=== PATIENT | male | born 2000 | race Caucasian/White ===

== ENCOUNTER 2021-04-12 12:27 | Outpatient (REF) | payer OTHER, SELFPAY ==
[2021-04-13 17:57] LABS: Varicella IgG Antibody <135.00 index
== END 2021-04-12 12:28 | disposition home or self-care (01) ==
LOC: HO.HMGCLDS 12:27
PROVIDERS: PCP Internal Medicine; Visit Provider Internal Medicine
DX: Z28.3 Underimmunization status (principal)
CPT/HCPCS: 36415; 86787

== ENCOUNTER 2022-10-04 10:36 | Outpatient (REF) | payer OTHER, SELFPAY ==
[2022-10-04 14:01] LABS: MANUAL DIFF FLAG NO
[2022-10-04 14:08] LABS: Basophils Percent Auto 0.5 % (0-2); Eosinophils Absolute Auto 0.2 X10*3/uL (0.0-0.4); Hemoglobin 14.9 g/dl (14.0-18.0); Lymphocytes Absolute Auto 2.2 X10*3/uL (1.2-4.9); Lymphocytes Percent Auto 55.6 % (20-40); Mean Corpuscular HGB Conc 31.7 g/dl (31.0-36.0); Mean Corpuscular Volume 91.4 fL (80.0-98.0); Mean Platelet Volume 10.8 fL (9.4-12.4); Monocytes Absolute Auto 0.3 X10*3/uL (0.1-1.2); Neutrophils Absolute Auto 1.3 x10*3/uL (2.0-8.3); Neutrophils Percent Auto 32.9 % (45-73); Platelet Count 180 X10*3/uL (160-400); Red Blood Count 5.14 X10*6/uL (4.60-5.80); Red Cell Distribution Width 12.5 % (11.0-16.0)
[2022-10-04 14:39] LABS: Alanine Aminotransferase 22 U/L (0-40); Albumin Level 4.5 g/dL (3.5-5.0); Alkaline Phosphatase 76 U/L (39-117); Anion Gap 10 (12-20); Aspartate Amino Transferase 17 U/L (5-37); Bilirubin Total 0.4 mg/dL (0.0-1.0); Blood Urea Nitrogen 17 mg/dL (9-16); Calcium 9.7 mg/dL (8.4-10.2); Carbon Dioxide 27 mmol/L (22-29); Chloride 109 mmol/L (96-108); Cholesterol 192 mg/dL; Estimated Glomerular Filt Rate > 60; Glucose Fasting 83 mg/dL (60-99); HDL Cholesterol 41 mg/dL; LDL Cholesterol Calculated 130 mg/dl; Potassium 4.1 mmol/L (3.3-5.1); Sodium 142 mmol/L (135-145); Triglycerides 106 mg/dL
[2022-10-04 15:01] LABS: TSH reflex Free T4 1.61 uIU/mL (0.32-4.0); Vitamin B12 552 pg/mL (200-900)
[2022-10-09 14:08] LABS: Testosterone, Total 638 ng/dL (250-1100)
[2022-10-10 16:22] LABS: Vitamin D 25-OH, D2 <4 ng/mL; Vitamin D 25-OH, D3 15 ng/mL; Vitamin D 25-OH, Total 15 ng/mL (30-100)
== END 2022-10-04 10:37 | disposition home or self-care (01) ==
LOC: HO.HMGCLDS 10:36
PROVIDERS: PCP Internal Medicine; Visit Provider Internal Medicine
DX: Z00.01 Encounter for general adult medical examination with abnormal findings (principal); D17.9 Benign lipomatous neoplasm, unspecified; D36.9 Benign neoplasm, unspecified site; L65.9 Nonscarring hair loss, unspecified
CPT/HCPCS: 36415; 80053; 80061; 82306; 82607; 84403; 84443; 85025

== ENCOUNTER 2022-10-08 10:38 | Outpatient (REF) | payer OTHER, SELFPAY ==
--- NOTE | ~2022-10-08 | US_ITS ---
EXAMINATION: US RETROPERITONEAL LIMITED (RENAL) CLINICAL INFORMATION: Unspecified abdominal pain. Right flank pain. COMPARISON: None TECHNIQUE: Real-time imaging of right kidney. The left kidney was not examined. FINDINGS: RIGHT KIDNEY: 11.0 x 4.3 x 6.0 cm (SAG x AP x TRV). The kidney is normal in size, contour, and echogenicity. Renal cortical thickness is normal. No calculi or focal parenchymal lesions. No hydronephrosis. US/US renal RT IMPRESSION: Normal-appearing right kidney.
== END 2022-10-08 10:39 | disposition home or self-care (01) ==
LOC: HO.HMGCX 10:38
PROVIDERS: PCP Internal Medicine; Visit Provider Internal Medicine
DX: R10.9 Unspecified abdominal pain (principal)
CPT/HCPCS: 76775

== ENCOUNTER 2023-09-13 11:00 | Outpatient (AMB) | payer OTHER, SELFPAY ==
--- NOTE | 2023-09-13 11:02 | A.OFFPC_ITS ---
Vital Signs 09/13/23 11:05 Height 5 ft 6 in Weight 184 lb BMI 29.7 BP 120/74 Pulse 72 Pulse Source Pulse Oximeter Pulse Oximetry (%) 97 Oxygen Delivery Method Room Air Intake Visit Reasons: Annual PE Allergies No Known Allergies Allergy (Verified 09/13/23 11:05) Medication List - Last Reconciled 09/13/23 by Karen Grullon MD No Known Home Meds Tobacco use date assessed: 09/13/23 Dental Screening Dental Screen Date: 09/13/23 Did you have a dental visit in the last 12 months?: Yes Did you have a dental problem in the last 6 months where you did not have access to dental care?: No Was dental information given to patient?: Patient has dentist HPI Annual PE HPI Details Patient is 23-year-old gentleman with a history of depression currently taking no medication and feeling fine, last time he had lab his white count was slightly low We will be repeating that, history of vitamin-D deficiency should be taking supplement came in today for physical examination Patient says that couple of months ago he was seen in walk-in clinic as he was having some dysuria and was diagnosed with mild UTI he was given antibiotic and he felt fine Last night when he went to urinate he had difficulty emptying his bladder, patient says that that is how it started last time He has no fever chills on examination there is no suprapubic discomfort days no penile discharge No back pain I have ordered urinalysis along with blood test I have sent Flomax for couple of weeks We will follow-up in 2 weeks [facility] Surgical History No pertinent past surgical history Family History Father No problems noted. Mother No problems noted. Brother No problems noted. Sister No problems noted. Sister No problems noted. Social History Housing: House Patient Tobacco Use Status: Current everyday Tobacco user e-Cigarette/Vaping Use: Never Used service: No Current occupational status: unemployed Cognitive needs: No Hearing needs: No Vision needs: Yes Questionnaire PHQ-9 Over the last 2 weeks, how often have you been bothered by any of the following problems? 1. Little interest or pleasure in doing things: not at all 2. Feeling down, depressed, or hopeless: not at all 3. Trouble falling or staying asleep, or sleeping too much: not at all 4. Feeling tired or having little energy: not at all 5. Poor appetite or overeating: not at all 6. Feeling bad about yourself - or that you are a failure or have let yourself or your family down: not at all 7. Trouble concentrating on things, such as reading the newspaper or watching television: not at all 8. Moving or speaking so slowly that other people could have noticed. Or the opposite - being so fidgety or restless that you have been moving around a lot more than usual: not at all 9. Thoughts that you would be better off or of hurting yourself in some way: not at all Total score: 0 Depression Screening Interpretation: Negative Depression Screening Done: Yes 65388 - PHQ-9 Billing: Yes Source: Developed by Drs. Carlo Romero, Rose Reese, Jose Sharma and colleagues, with an educational patsy from [employer]. Thrive Questionnaire Date Thrive assessed: 09/13/23 I am a: Patient What is your living situation today?: I have a steady place to live Within the past 12 months, did the food you bought not last and you didn't have the money to get more?: Never true Within the past 12 months, did you worry whether your food would run out before you got money to buy more?: Never true Do you have trouble paying for medicines?: No Do you have trouble getting transportation to medical appointments?: No Do you have trouble paying your heating and electricity bill?: No Do you have trouble taking care of your child, family member or friend?: No Do you have trouble with day-to-day activities such as bathing, preparing meals, shopping, managing finances, etc.?: No Are you currently unemployed and looking for a job?: No Are you interested in more education?: No Please select the resources that you would like help with: None Currently or been in a relationship where the following occur: no concerns reported AUDIT C Alcohol Use Questionnaire (AUDIT-C) 1. How often do you have a drink containing alcohol?: Never 3. How often do you have six or more drinks on one occasion?: Never Total Score: 0 Score Reviewed/Action Taken: Yes MOI-7 AMB Questionnaire MOI-7 Date MOI - 7 assessed: 09/13/23 Feeling nervous, anxious, or on edge: 0 = Not at all Not being able to stop or control worryin = Not at all Worrying too much about different things: 0 = Not at all Trouble relaxin = Not at all Being so restless that it is hard to sit still: 0 = Not at all Becoming easily annoyed or irritable: 0 = Not at all Feeling afraid as if something awful might happen: 0 = Not at all Total MOI-7 score (0-4 normal; 5-9 mild; 10-14 moderate; 15-21 severe): 0 Source: Developed by Drs. Carlo Romero, Rose Reese, Jose Sharma and colleagues, with an educational patsy from [employer]. MOI-7 Assessment Billing MOI-7 Assessment Tool: MOI-7 Assessment 27136 Review of Systems Const Denies chills, Denies fever(s) and Denies headache(s) Eyes Denies blurry vision ENT Denies headache(s), Denies nasal discharge, Denies nasal obstruction, Denies odynophagia and Denies sinus pain Card Denies chest pain at rest and Denies chest pain with activity Resp Denies cough and Denies hemoptysis GI Denies diarrhea, Denies odynophagia, Denies vomiting and Denies hematemesis Reports as per HPI Musc Denies abnormal gait Skin/Breast Reports as per HPI Neuro Denies Neuro-related abnormal movements, Denies Abnormal speech present, Denies abnormal gait, Denies headache(s) and Denies Sensory deficit (Neuro) Psych Denies mood swings and Denies paranoia Endo Reports as per HPI Cody/Lymph Reports as per HPI Aller/Immun Reports as per HPI Physical exam (Primary Care) Vital Signs: Last Vital Signs Pulse 72 09/13/23 11:05 BP 120/74 09/13/23 11:05 Pulse Ox 97 09/13/23 11:05 Oxygen Delivery Method Room Air 09/13/23 11:05 BMI result Body Mass Index 29.7 Tobacco/Smoking Status: Tobacco use Status Tobacco use date assessed 09/13/23 09/13/23 11:07 Patient Tobacco Use Status Current everyday Tobacco 09/13/23 11:07 e-Cigarette/Vaping Use Never Used 09/13/23 11:03 PHQ-9: PHQ-9 Score PHQ-9: Total score 0 09/13/23 11:23 Depression Screening Interpretation: Negative Thrive Assessment: Date of Thrive Assessment Date Thrive assessed 09/13/23 09/13/23 11:23 Currently or been in a relationship where the following occur: no concerns reported Const General: cooperative, comfortable and no acute distress Orientation/consciousness: patient oriented x3 HENMT Head: Yes normocephalic and Yes atraumatic Eyes General: appearance normal, both eyes and all related structures Pupils: Equal, round and reactive pupils present EOM: EOMs intact bilaterally Neck Neck: Yes supple and No lymphadenopathy Thyroid: Thyroid normal Lymphatic: no lymphadenopathy noted Resp Effort & Inspection: normal respiratory effort and able to speak in complete sentences Auscultation: clear to auscultation bilaterally Cardio Heart sounds: S1 normal heart sound present and S2 normal heart sound present GI Palpation (GI): Soft to palpation and nontender Auscultation: normal bowel sounds General: Yes no CVA tenderness Back/Spine/Pelvis Back: no CVA tenderness Skin General skin exam: elasticity normal and turgor normal Neuro General: patient oriented x3 and gait normal Cranial nerves: Yes Equal, round and reactive pupils present Speech: No Abnormal speech present Sensory Exam: No Sensory deficit (Neuro) Coordination: tandem gait normal and Romberg test negative Extrem General: Yes normal exam except as noted and No edema Office Procedures Flu Questionnaire Does the patient have a severe egg allergy?: No Does the patient have severe life threatening allergies?: No Does the patient have a fever or illness today?: No Has the patient ever had Guillain-[place] Syndrome?: No Has the patient ever had any past reaction to a flu shot?: No Immunizations flu vacc [id number] 6mos up(PF) 60 mcg(15 mcgx4)/0.5 mL IM syringe Performing Provider: Karen Grullon MD Performing Location: [facility] Administered by: DK Howard on 09/13/23 11:23 Dose Route Admin Location Dispensed Lot Number Expiration Date NDC Window Framer 0.5 mL IM Left Deltoid 0.5 mL [id number] 03/01/24 [id number] [employer] VIS Given Date VIS Provided VIS Publication Date 09/13/23 Single Vaccine 21 Eligibility Eligibility Date Funding Source Not [facility] Eligible 09/13/23 Private Assessment and Plan Assessment & Plan (1) Encounter for general adult medical examination with abnormal findings: Code(s): Z00.01 - Encounter for general adult medical examination with abnormal findings (2) Neutropenia: Code(s): D70.9 - Neutropenia, unspecified Qualifiers: Neutropenia type: unspecified Qualified Code(s): D70.9 - Neutropenia, unspecified (3) Vitamin D deficiency: Code(s): E55.9 - Vitamin D deficiency, unspecified (4) Difficulty urinating: Code(s): R39.198 - Other difficulties with micturition Plan Patient is 23-year-old gentleman with a history of depression currently taking no medication and feeling fine, last time he had lab his white count was slightly low We will be repeating that, history of vitamin-D deficiency should be taking supplement came in today for physical examination Patient says that couple of months ago he was seen in walk-in clinic as he was having some dysuria and was diagnosed with mild UTI he was given antibiotic and he felt fine Last night when he went to urinate he had difficulty emptying his bladder, patient says that that is how it started last time He has no fever chills on examination there is no suprapubic discomfort days no penile discharge No back pain I have ordered urinalysis along with blood test I have sent Flomax for couple of weeks We will follow-up in 2 weeks Orders: Orders Complete Blood Count Auto Diff Today E55.9 - Vitamin D deficiency, unspecified, E87.1 - Hypo-osmolality and hyponatremia, F33.0 - Major depressive disorder, recurrent, mild, Z00.01 - Encounter for general adult medical examination with abnormal findings Comprehensive [place]. Panel Fast Today E55.9 - Vitamin D deficiency, unspecified, E87.1 - Hypo-osmolality and hyponatremia, F33.0 - Major depressive disorder, recurrent, mild, Z00.01 - Encounter for general adult medical examination with abnormal findings Lipid Panel Today E55.9 - Vitamin D deficiency, unspecified, E87.1 - Hypo- osmolality and hyponatremia, F33.0 - Major depressive disorder, recurrent, mild, Z00.01 - Encounter for general adult medical examination with abnormal findings UA CC w/rflx Micro + Cult Today R39.198 - Other difficulties with micturition Vitamin D 25-OH (D2 and D3) Today E55.9 - Vitamin D deficiency, unspecified, E87.1 - Hypo-osmolality and hyponatremia, F33.0 - Major depressive disorder, recurrent, mild, Z00.01 - Encounter for general adult medical examination with abnormal findings Influenza [id number] Immunization Today Z23 - Encounter for immunization Medications: New tamsulosin (Flomax) 0.4 mg PO BEDTIME 30 caps 0RF Coding Level of Care Code Est Pt Prev Care 18-39y(10841) Diagnoses Encounter for general adult medical examination with abnormal findings Z00.01 Neutropenia, unspecified type D70.9 Neutropenia type: unspecified Vitamin D deficiency E55.9 Difficulty urinating R39.198 Additional Codes MOI-7 Assessment Billing - MOI-7 Assessment Tool: MOI-7 Assessment 45626 ([id number])
[2023-09-13 11:05] VITALS: BP 120/74; PULSE 72; O2SAT 97; BMI 29.7
== END 2023-09-13 12:47 | disposition home or self-care (01) ==
PROVIDERS: Visit Provider Internal Medicine
DX: Z00.00 Encounter for general adult medical examination without abnormal findings (principal); D70.9 Neutropenia, unspecified; E55.9 Vitamin D deficiency, unspecified; Z23 Encounter for immunization; R39.198 Other difficulties with micturition
CPT/HCPCS: 90471; 90686; 99395

== ENCOUNTER 2023-09-18 14:08 | Outpatient (REF) | payer OTHER, SELFPAY ==
[2023-09-18 16:28] LABS: Appearance Urine Clear; Color Urine Yellow; Glucose Urine UA Negative (Negative); Leukocyte Esterase Urine Negative (Negative); Nitrite Urine Negative (Negative); Specific Gravity - Urine 1.025 (1.005-1.025); Urine Blood Negative (Negative); Urine Ketones Negative (Negative); Urine Protein Negative (Neg-Trace)
[2023-09-18 16:37] LABS: MANUAL DIFF FLAG NO
[2023-09-18 16:44] LABS: Basophils Percent Auto 0.5 % (0-2); Eosinophils Absolute Auto 0.1 X10*3/uL (0.0-0.4); Eosinophils Percent Auto 2.9 % (0-4); Hematocrit 43.3 % (42.0-52.0); Hemoglobin 14.1 g/dl (14.0-18.0); Imm Gran Abs Auto 0.01 X10*3/uL (0.00-0.03); Imm Gran Pct Auto 0.3 % (0.0-0.4); Lymphocytes Absolute Auto 1.6 X10*3/uL (1.2-4.9); Mean Corpuscular HGB Conc 32.6 g/dl (31.0-36.0); Mean Corpuscular Hemoglobin 29.7 pg (27.0-33.0); Mean Corpuscular Volume 91.2 fL (80.0-98.0); Mean Platelet Volume 10.8 fL (9.4-12.4); Monocytes Absolute Auto 0.3 X10*3/uL (0.1-1.2); Neutrophils Absolute Auto 1.7 x10*3/uL (2.0-8.3); Neutrophils Percent Auto 44.3 % (45-73); Platelet Count 179 X10*3/uL (160-400); Red Blood Count 4.75 X10*6/uL (4.60-5.80); Red Cell Distribution Width 12.6 % (11.0-16.0); White Blood Count 3.8 X10*3/uL (4.8-10.8)
[2023-09-18 16:54] LABS: Alanine Aminotransferase 26 U/L (0-40); Albumin Level 4.4 g/dL (3.5-5.0); Alkaline Phosphatase 67 U/L (39-117); Anion Gap 12 (12-20); Aspartate Amino Transferase 18 U/L (5-37); Bilirubin Total 0.4 mg/dL (0.0-1.0); Blood Urea Nitrogen 13 mg/dL (9-16); Calcium 9.5 mg/dL (8.4-10.2); Carbon Dioxide 27 mmol/L (22-29); Chloride 107 mmol/L (96-108); Cholesterol 189 mg/dL (<200); Estimated Glomerular Filt Rate > 60; Glucose Fasting 91 mg/dL (60-99); HDL Cholesterol 50 mg/dL (>40); LDL Cholesterol Calculated 128 mg/dL (<100); Potassium 4.1 mmol/L (3.3-5.1); Sodium 142 mmol/L (135-145); Total Protein 7.3 g/dL (6.5-8.0); Triglycerides 59 mg/dL (<150)
[2023-09-22 13:23] LABS: Vitamin D 25-OH, D2 <4 ng/mL; Vitamin D 25-OH, D3 11 ng/mL; Vitamin D 25-OH, Total 11 ng/mL (30-100)
== END 2023-09-18 14:09 | disposition home or self-care (01) ==
LOC: HO.HMGCLDS 14:08
PROVIDERS: PCP Internal Medicine; Visit Provider Internal Medicine
DX: Z00.01 Encounter for general adult medical examination with abnormal findings (principal); E87.1 Hypo-osmolality and hyponatremia; F33.0 Major depressive disorder, recurrent, mild; E55.9 Vitamin D deficiency, unspecified; R39.198 Other difficulties with micturition
CPT/HCPCS: 36415; 80053; 80061; 81003; 82306; 85025

== ENCOUNTER 2023-09-26 07:40 | Outpatient (AMB) | payer OTHER, SELFPAY ==
--- NOTE | 2023-09-26 08:42 | MHC.PC.OV ---
Vital Signs 09/26/23 08:42 Height 5 ft 6 in Intake Visit Reasons: Urinary Symptoms [phone] Iphone Allergies No Known Allergies Allergy (Verified 09/26/23 08:43) Medication List - Last Reconciled 09/26/23 by Karen Grullon MD tamsulosin (Flomax) 0.4 mg PO BEDTIME Tobacco use date assessed: 09/26/23 Dental Screening Dental Screen Date: 09/26/23 Did you have a dental visit in the last 12 months?: Yes Did you have a dental problem in the last 6 months where you did not have access to dental care?: No Was dental information given to patient?: Patient has dentist HPI Urinary Symptoms [phone] Iphone HPI Details Patient is 23-year-old gentlemen this is a telemedicine video conference follow-up Patient was complaining of having difficulty emptying his bladder, I started him on Flomax he took couple of doses of felt better and then stopped He is doing well now without any problem and is not taking medication as well However he is having that recurrent Grace so I have placed a referral for him to see a urologist. Patient is also complaining of upper back pain and is requesting a referral to chiropractor which I have placed for him. Labs done reviewed with the patient vitamin-D level is still low he is taking supplement His UA was clean. [facility] Surgical History No pertinent past surgical history Family History Father No problems noted. Mother No problems noted. Brother No problems noted. Sister No problems noted. Sister No problems noted. Social History Housing: House Patient Tobacco Use Status: Current everyday Tobacco user e-Cigarette/Vaping Use: Never Used service: No Current occupational status: unemployed Cognitive needs: No Hearing needs: No Vision needs: Yes Questionnaire Thrive Questionnaire Date Thrive assessed: 09/13/23 AUDIT C Alcohol Use Questionnaire (AUDIT-C) 1. How often do you have a drink containing alcohol?: Never 3. How often do you have six or more drinks on one occasion?: Never Total Score: 0 Score Reviewed/Action Taken: Yes MOI-7 AMB Questionnaire MOI-7 Date MOI - 7 assessed: 09/13/23 Source: Developed by Drs. Carlo Romero, Rose Reese, Jose Sharma and colleagues, with an educational patsy from [employer]. Review of Systems Const Denies chills and Denies fever(s) ENT Denies epistaxis and Denies nasal discharge Card Denies chest pain Resp Denies chest congestion, Denies cough and Denies hemoptysis GI Denies diarrhea and Denies nausea Skin/Breast Denies rash Neuro Reports no additional complaints Psych Reports no additional complaints Endo Reports no additional complaints Physical exam (Primary Care) Tobacco/Smoking Status: Tobacco use Status Tobacco use date assessed 09/26/23 09/26/23 08:43 Patient Tobacco Use Status Current everyday Tobacco 09/26/23 08:43 e-Cigarette/Vaping Use Never Used 09/26/23 08:43 Thrive Assessment: Date of Thrive Assessment Date Thrive assessed 09/13/23 09/26/23 08:43 Telehealth Telehealth Location of provider rendering services: practice address Location of patient: address on file Patient Identification confirmed using: Name, : Yes Telehealth method: video Patient verbally consented to treatment: Yes Patient verbally consented to billing insurance company: Yes Patient informed of any privacy concerns related to visit: Yes Assessment and Plan Assessment & Plan (1) Difficulty urinating: Code(s): R39.198 - Other difficulties with micturition (2) Upper back pain: Code(s): M54.9 - Dorsalgia, unspecified (3) Vitamin D deficiency: Code(s): E55.9 - Vitamin D deficiency, unspecified (4) Neutropenia: Code(s): D70.9 - Neutropenia, unspecified Qualifiers: Neutropenia type: unspecified Qualified Code(s): D70.9 - Neutropenia, unspecified Plan Patient is 23-year-old gentlemen this is a telemedicine video conference follow-up Patient was complaining of having difficulty emptying his bladder, I started him on Flomax he took couple of doses of felt better and then stopped He is doing well now without any problem and is not taking medication as well However he is having that recurrent Grace so I have placed a referral for him to see a urologist. Patient is also complaining of upper back pain and is requesting a referral to chiropractor which I have placed for him. Labs done reviewed with the patient vitamin-D level is still low he is taking supplement His UA was clean. Continue to have slightly low white count Orders: Referrals Chiropractic Referral M54.9 - Dorsalgia, unspecified Vascular Surgery Referral R39.198 - Other difficulties with micturition Coding Level of Care Code Tele Est Pt Level 4 (25596) Diagnoses Difficulty urinating R39.198 Upper back pain M54.9 Vitamin D deficiency E55.9 Neutropenia, unspecified type D70.9 Neutropenia type: unspecified Time Spent (min) 31 Comment 4 min prep, 16 with patient, 5 charting, 6 min orders
== END 2023-09-26 12:09 | disposition home or self-care (01) ==
LOC: HO.HMGC 07:40
PROVIDERS: PCP Internal Medicine; Visit Provider Internal Medicine
DX: R39.198 Other difficulties with micturition (principal); M54.9 Dorsalgia, unspecified; E55.9 Vitamin D deficiency, unspecified; D70.9 Neutropenia, unspecified
CPT/HCPCS: 99214

== ENCOUNTER 2023-12-24 13:20 | Outpatient (AMB) | payer OTHER, SELFPAY ==
--- NOTE | 2023-12-24 13:23 | A.OFFVIS_ITS ---
Intake Visit Reasons: Premature ejaculation Intake Note: New patient is present for Premature Ejaculation. Patient was previously referred for urinary issues but he states he does not have any urinary issues anymore Antibiotic Allergies: None Allergies No Known Allergies Allergy (Verified 12/24/23 13:28) HPI Comments Details: Denis is a pleasant male. He is a patient of Dr. Grullon. He seen for the following urologic conditions - pelvic pressure after urination - premature ejaculation - partial ED Six-month follow-up tele Premature ejaculation Relatively recent development Smokes marijuana daily Discussed reducing marijuana use Encouraged use of lidocaine spray Urinary urgency Denies coffee, chocolate, spicy food Does smoke marijuana Recommend using marijuana use PFSH Surgical History No pertinent past surgical history Family History Father No problems noted. Mother No problems noted. Brother No problems noted. Sister No problems noted. Sister No problems noted. Social History Housing: House Patient Tobacco Use Status: Current everyday Tobacco user e-Cigarette/Vaping Use: Never Used service: No Current occupational status: unemployed Cognitive needs: No Hearing needs: No Vision needs: Yes Review of Systems Const Denies chills and Denies fever(s) Card Reports no additional complaints and Denies syncope Resp Denies cough GI Denies abdominal pain and Denies heartburn Reports as per HPI and Denies change in libido Neuro Denies syncope Psych Denies change in libido Endo Denies change in libido Physical Exam Const General: cooperative, healthy appearing, comfortable and no acute distress Orientation/consciousness: patient oriented x3 HEENT Face and sinus: Yes normal facial exam Mouth: moist mucous membranes Neck Neck: Yes normal visual inspection, Yes full ROM and Yes trachea midline Chest Chest palpation & inspection: normal inspection of the chest Resp Effort & Inspection: normal respiratory effort, able to speak in complete sentences and no respiratory distress GI Inspection: Yes normal to inspection Back/Spine/Pelvis Cervical Spine: normal cervical lordosis Thoracic/Lumbar Spine: thoracic and lumbar spine normal to inspection Skin General skin exam: no rashes or lesions noted Neuro General: patient oriented x3, gait normal, tone normal and moves all extremities Extrem General: Yes normal to inspection and Yes capillary refill normal Assessment & Plan Assessment & Plan (1) Difficulty urinating: Code(s): R39.198 - Other difficulties with micturition Category: Medical (2) Premature ejaculation: Code(s): F52.4 - Premature ejaculation Category: Medical Plan Six-month follow-up Patient Instructions: Imaging studies, laboratory and physical exam results were discussed and reviewed in detail. No major barriers to patient understanding were identified. An opportunity to ask questions regarding the treatment plan was provided. All questions were answered. The patient expressed understanding and agreement with the above treatment plan. The patient is aware they should contact our office by phone for worsening of their current condition or the appearance of new urologic symptoms. Compliance is encouraged with any medications and followup testing that is ordered. It is a privilege to participate in the urologic care of your patient. If you have any questions or concerns regarding treatment for the above conditions, or other urologic issues, please do not hesitate to contact me. The office telephone contact is [phone]. This note is constructed using voice recognition software. While every effort has been made to ensure accuracy mva reactor operator head errors may have been included. Yours sincerely, Dr Hernandez Mitchell MD, [facility] - Urology Providers of Expert, Compassionate Care for the Genitourinary System Coding Level of Care Code New Pt Level 4 (15113) Diagnoses Difficulty urinating R39.198 Premature ejaculation F52.4
== END 2023-12-24 13:51 | disposition home or self-care (01) ==
PROVIDERS: PCP Internal Medicine; Visit Provider Urology
DX: R39.198 Other difficulties with micturition (principal); F52.4 Premature ejaculation
CPT/HCPCS: 99203

== ENCOUNTER → 2023-12-24 13:20 | Outpatient (BNVA) | payer OTHER, SELFPAY | PROVIDERS: PCP Internal Medicine; Visit Provider Urology | DX: F52.4 Premature ejaculation (principal); R39.198 Other difficulties with micturition | CPT/HCPCS: 99202 ==

== ENCOUNTER 2025-06-02 12:57 | Outpatient (AMB) | payer OTHER, SELFPAY ==
--- NOTE | 2025-06-02 12:59 | A.OFFPC_ITS ---
Vital Signs 06/02/25 13:01 Height 5 ft 6 in Weight 195 lb BMI 31.5 BP 122/78 Blood Pressure Location Rt brachial Position Sitting Pulse 80 Pulse Source Pulse Oximeter Pulse Oximetry (%) 98 Intake Visit Reasons: general health/bladder pressure-update pcp Manager Media Relations Required: No Accompanied by: Self / Same As Patient Allergies No Known Allergies Allergy (Verified 06/02/25 13:02) Medication List - Last Reconciled 06/02/25 by Karen Grullon MD finasteride 5 mg PO DAILY Tobacco use date assessed: 06/02/25 Dental Screening Dental Screen Date: 06/02/25 Did you have a dental visit in the last 12 months?: Yes Did you have a dental problem in the last 6 months where you did not have access to dental care?: No Was dental information given to patient?: Patient has dentist HPI general health/bladder pressure-update pcp HPI Details History of Present Illness The patient is a 24-year-old male presenting with bladder pressure sensation and light sensitivity causing migraines. Bladder Pressure Sensation: - Symptoms started about four months ago . - Describes a sensation of pressure in t he bladder, feeling a need to urinate even shortly after voiding. - No difficulty initiating or completing urination; the ability to empty the bladder is not impaired. - No associated hematuria or significant back pain reported. - No urological consultation for this is jacki has been sought previously; prior consultation with Dr. Mitchell was for an unrelated concern.[premature ejaculation ] Light Sensitivity with Migraines: - Increased sensitivity to light while d riving noted in the past year. - Requires sunglasses due to discomfort, though they are not prescription. - Light exposure, particularly at sunset , induces significant headaches and migraines. - Patient experiences worsening headache s correlated with light exposure, seeking an exemption for a darker tint on vehicle windows. - Recent eye examination done elsewhere; no specific results were discussed. Medications: - Finasteride for hair loss. Problem List - Bladder pressure sensation - Light sensitivity with associated migr aines Plan - Bladder pressure sensation: - I will o rder a urinalysis to rule out any infection or other underlying issues related to his urinary symptoms. - Light sensitivity with associated migr aines: - The patient was instructed to have an eye examination report sent to me for further review. - Currently, I have prescribed amitripty line as a preventative treatment for migraines, especially given the light sensitivity. - The patient is to follow up after comp leting this initial workup and trying the medication to assess effectiveness and necessity for further intervention. Patient Instructions - Obtain the urine test tomorrow morning . - Bring the report from your recent eye examination to your next visit. - Take the prescribed medication, amitri ptyline, at bedtime as directed to help prevent migraines. - Return for follow-up in two to three w eeks to evaluate progress and test results. Review of Systems - General: No fever no chills - Neurological: no dizziness - Ear nose throat: No sore throat no hearing difficulty no ear pain - Cardiovascular: No syncope, no chest pain, no palpitations - Gastrointestinal: No nausea vomiting or diarrhea - Endocrine: No polyuria polydipsia no heat intolerance - Genitourinary: No dysuria , no blood in urine Physical Exam General: No acute distress HEENT: No acute findings, PERRLA, EOMI Neck: Supple Respiratory system: Able to talk in full sentences, no audible wheeze Cardiovascular: S1-S2 regular in rate and rhythm Gastrointestinal: No pain Extremities: No new findings KEEPER HELPER: Alert awake oriented x3 motor intact Skin: Normal turgor PFSH Surgical History No pertinent past surgical history Family History Father No problems noted. Mother No problems noted. Brother No problems noted. Sister No problems noted. Sister No problems noted. Social History Housing: House Patient Tobacco Use Status: Never used Tobacco e-Cigarette/Vaping Use: Never Used service: No Current occupational status: employed Current occupation: security Cognitive needs: No Hearing needs: No Vision needs: Yes Questionnaire PHQ-9 Over the last 2 weeks, how often have you been bothered by any of the following problems? 1. Little interest or pleasure in doing things: not at all 2. Feeling down, depressed, or hopeless: not at all 3. Trouble falling or staying asleep, or sleeping too much: not at all 4. Feeling tired or having little energy: not at all 5. Poor appetite or overeating: not at all 6. Feeling bad about yourself - or that you are a failure or have let yourself or your family down: not at all 7. Trouble concentrating on things, such as reading the newspaper or watching television: not at all 8. Moving or speaking so slowly that other people could have noticed. Or the opposite - being so fidgety or restless that you have been moving around a lot more than usual: not at all 9. Thoughts that you would be better off or of hurting yourself in some way: not at all Total score: 0 Depression Screening Interpretation: Negative Depression Screening Done: Yes 81031 - PHQ-9 Billing: Yes Source: Developed by Drs. Carlo Romero, Rose Reese, Jose Sharma and colleagues, with an educational patsy from [employer]. Thrive Questionnaire Date Thrive assessed: 09/11/24 I am a: Patient What is your living situation today?: I have a steady place to live Within the past 12 months, did the food you bought not last and you didn't have the money to get more?: Never true Within the past 12 months, did you worry whether your food would run out before you got money to buy more?: Never true Do you have trouble paying for medicines?: No Do you have trouble getting transportation to medical appointments?: No Do you have trouble paying your heating and electricity bill?: No Do you have trouble taking care of your child, family member or friend?: No Do you have trouble with day-to-day activities such as bathing, preparing meals, shopping, managing finances, etc.?: No Are you currently unemployed and looking for a job?: No Are you interested in more education?: No Please select the resources that you would like help with: None Currently or been in a relationship where the following occur: No concerns reported THRIVE Score: 0 AUDIT C Alcohol Use Questionnaire (AUDIT-C) 1. How often do you have a drink containing alcohol?: Monthly or less 2. How many drinks containing alcohol do you have on a typical day when you are drinking?: 1 or 2 3. How often do you have six or more drinks on one occasion?: Never Total Score: 1 Score Reviewed/Action Taken: Yes MOI-7 AMB Questionnaire MOI-7 Date MOI - 7 assessed: 06/02/25 Feeling nervous, anxious, or on edge: 0 = Not at all Not being able to stop or control worryin = Not at all Worrying too much about different things: 0 = Not at all Trouble relaxin = Not at all Being so restless that it is hard to sit still: 0 = Not at all Becoming easily annoyed or irritable: 0 = Not at all Feeling afraid as if something awful might happen: 0 = Not at all Total MOI-7 score (0-4 normal; 5-9 mild; 10-14 moderate; 15-21 severe): 0 Source: Developed by Drs. Carlo Romero, Rose Reese, Jose Sharma and colleagues, with an educational patsy from [employer]. MOI-7 Assessment Billing MOI-7 Assessment Tool: MOI-7 Assessment 20877 Physical exam (Primary Care) Vital Signs: Last Vital Signs Pulse 80 06/02/25 13:01 BP 122/78 06/02/25 13:01 Pulse Ox 98 06/02/25 13:01 BMI result Body Mass Index 31.5 Tobacco/Smoking Status: Tobacco use Status Tobacco use date assessed 06/02/25 06/02/25 13:04 Patient Tobacco Use Status Never used Tobacco 06/02/25 13:04 e-Cigarette/Vaping Use Never Used 06/02/25 13:04 PHQ-9: PHQ-9 Score PHQ-9: Total score 0 06/02/25 13:14 Depression Screening Interpretation: Negative Thrive Assessment: Date of Thrive Assessment Date Thrive assessed 09/11/24 06/02/25 13:04 Currently or been in a relationship where the following occur: No concerns reported Coding Level of Care Code Est Pt Level 4 (61104) Diagnoses Sensation of pressure in bladder area R39.89 Light sensitivity R68.89 Frequent headaches R51.9 Additional Codes MOI-7 Assessment Billing - MOI-7 Assessment Tool: MOI-7 Assessment 98534 ([id number]) PHQ-9 - 04752 - PHQ-9 Billing: Yes ([id number]) Assessment & Plan Assessment & Plan (1) Sensation of pressure in bladder area: Code(s): R39.89 - Other symptoms and signs involving the genitourinary system Category: Medical (2) Light sensitivity: Code(s): R68.89 - Other general symptoms and signs Category: Medical (3) Frequent headaches: Code(s): R51.9 - Headache, unspecified Category: Medical Plan History of Present Illness The patient is a 24-year-old male presenting with bladder pressure sensation and light sensitivity causing migraines. Bladder Pressure Sensation: - Symptoms started about four months ago. - Describes a sensation of pressure in the bladder, feeling a need to urinate even shortly after voiding. - No difficulty initiating or completing urination; the ability to empty the bladder is not impaired. - No associated hematuria or significant back pain reported. - No urological consultation for this issue has been sought previously; prior consultation with Dr. Mitchell was for an unrelated concern.[premature ejaculation ] Light Sensitivity with Migraines: - Increased sensitivity to light while driving noted in the past year. - Requires sunglasses due to discomfort, though they are not prescription. - Light exposure, particularly at sunset, induces significant headaches and migraines. - Patient experiences worsening headaches correlated with light exposure, seeking an exemption for a darker tint on vehicle windows. - Recent eye examination done elsewhere; no specific results were discussed. Medications: - Finasteride for hair loss. Problem List - Bladder pressure sensation - Light sensitivity with associated migraines Plan - Bladder pressure sensation: - I will order a urinalysis to rule out any infection or other underlying issues related to his urinary symptoms. - Light sensitivity with associated migraines: - The patient was instructed to have an eye examination report sent to me for further review. - Currently, I have prescribed amitriptyline as a preventative treatment for migraines, especially given the light sensitivity. - The patient is to follow up after completing this initial workup and trying the medication to assess effectiveness and necessity for further intervention. Patient Instructions - Obtain the urine test tomorrow morning. - Bring the report from your recent eye examination to your next visit. - Take the prescribed medication, amitriptyline, at bedtime as directed to help prevent migraines. - Return for follow-up in two to three weeks to evaluate progress and test results. Orders: Orders UA CC w/rflx Micro + Cult Today R39.89 - Other symptoms and signs involving the genitourinary system Medications: New amitriptyline 25 mg PO BEDTIME 30 tabs 0RF 30 days
[2025-06-02 13:01] VITALS: BP 122/78; PULSE 80; O2SAT 98; BMI 31.5
--- OUTSIDE RECORDS SUMMARY | 2025-06-02 14:17 | XMS_ITS | Clinical Summary ---
[facility] Organization [facility] Address [id number] [place] [id number] Care Team Providers Care Neck Fitter Name Role Phone Unavailable Primary Care Provider Unavailabl e Family History Medical History Relation Name Comments Diabetes Maternal Grandmother Diabetes Mother gest. Relation Name Status Comments Father Alive Maternal Grandmother Mother Alive 01/22/79 ESTEVAN CORBIN Social History Tobacco Use Types Packs/Day Years Used Date Smoking Tobacco: Never Alcohol Use Standard Drinks/Week Comments No 0 (1 standard drink = 0.6 oz pur e alcohol) Sex and Gender Information Value Date Recorded Sex Assigned at Not on file Legal Sex Male 10:04 AM EST Gender Identity Not on file Sexual Orientation Not on file Obstetrics History Plan of Treatment Health Maintenance Due Date Last Done Comments DTaP,Tdap,and Td Vaccines (6 - Tdap) 2010 05/08/2006, 01/05/2004, 09/27/2000, Additional history exists HPV Vaccines (1 - Male 3-dose series) 2014 HIV Screening 07/31/2022 Hepatitis C Screening 07/31/2022 Social Influencers of Health Screening 07/31/2022 Depression Screening 09/02/2024 COVID-19 Vaccine ( - season) 2025 Influenza Vaccine (#1) 2025 RSV Immunization Adult Patients (1 - 1-dose 75+ series) 2074 Hepatitis B Vaccines Completed 1999, 1999, 1999 HIB Vaccines Completed 06/26/2000, 12/02, 1999, Additional history exists Pneumococcal Vaccine: Pediatrics (0 to 5 Years) and At-Risk Patients (6 to 49 Years) Aged Out 06/26/2000, 03/29/2000 No longer eligibl e based on patient's age to complete this topic Varicella Vaccines Aged Out 06/26/2000 No longer eligible based on patient's age to complete this topic IPV Vaccines Completed 05/08/2006, 01/2004, 09/27/2000, Additional history exists MMR Vaccines Completed 05/08/2006, 01/2004, 06/26/2000 Hepatitis A Vaccines Aged Out No long er eligible based on patient's age to complete this topic Meningococcal ACWY Vaccine Aged Out N o longer eligible based on patient's age to complete this topic Meningococcal B Vaccine Aged Out No l onger eligible based on patient's age to complete this topic RSV Immunization Patients Under 20 months Aged Out No longer eligible based on patient's age to complete this topic
== END 2025-06-02 13:17 | disposition home or self-care (01) ==
LOC: HO.HMCC 12:58
PROVIDERS: PCP Internal Medicine; Visit Provider Internal Medicine
DX: R39.89 Other symptoms and signs involving the genitourinary system (principal); R68.89 Other general symptoms and signs; R51.9 Headache, unspecified

== ENCOUNTER → 2025-06-02 12:57 | Outpatient (BNVA) | payer OTHER, SELFPAY | PROVIDERS: PCP Internal Medicine; Visit Provider Internal Medicine | DX: G43.909 Migraine, unspecified, not intractable, without status migrainosus (principal); N32.89 Other specified disorders of bladder; R68.89 Other general symptoms and signs | CPT/HCPCS: 96127; 99212 ==

== ENCOUNTER 2025-06-08 13:18 | Outpatient (REF) | payer OTHER, SELFPAY ==
[2025-06-08 16:12] LABS: Appearance Urine Clear; Glucose Urine UA Negative (Negative); PH 7.5 (5.0-9.0); Specific Gravity - Urine 1.025 (1.005-1.025)
--- OUTSIDE RECORDS SUMMARY | 2025-06-08 16:17 | XMS_ITS | Clinical Summary ---
[facility] Organization [facility] Address [address] [place] [id number] Care Team Providers Care Medical Research Associate Name Role Phone Unavailable Primary Care Provider [...]
== END 2025-06-08 13:19 | disposition home or self-care (01) ==
LOC: HO.HMGCLDS 13:18
PROVIDERS: PCP Internal Medicine; Visit Provider Internal Medicine
DX: R39.89 Other symptoms and signs involving the genitourinary system (principal)
CPT/HCPCS: 81003

== ENCOUNTER 2025-08-17 15:32 | Outpatient (AMB) | payer OTHER, SELFPAY ==
[2025-08-17 15:38] VITALS: BP 120/74; PULSE 85; O2SAT 98; BMI 30.5
--- NOTE | 2025-08-17 15:38 | MHC.PC.OV ---
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 Migraine: - The patient's migraine symptoms have resolved since starting amitriptyline. - He is no longer taking the medication and does not require a refill. Urinary symptoms: - The patient previously experienced urinary pressure, which has now resolved. - He has reduced his intake of sodas and is drinking more water. - A recent urine test was normal. Hair loss: - The patient is concerned about thinning hair, which has not improved despite using finasteride and minoxidil for over six months. - He obtained the medications through an online service called [facility]. - A wheel polisher previously suggested he try [facility]. - The patient reports no family history of hair loss and denies any scalp itching or rash. - He had a history of severe dandruff which resolved with the use of Nizoral shampoo. Vitamin D deficiency: - Lab tests from the previous year showed low vitamin D. - He is currently taking a vitamin D3 supplement daily. - He also started taking an iron supplement in the last couple of months. Medical History: - Migraine - Vitamin D deficiency, diagnosed last year - Dandruff, severe, now resolved Social History: - Employment: He works the second shift in security. - Housing: He lives in [place] near [facility]. - Diet: He has recently reduced his consumption of sodas and is trying to drink more water. - Sleep: Reports his sleep is a little off, which he attributes to his work schedule. Family History: - The patient denies any family history of hair loss. Health Maintenance - The patient is due for repeat lab work, as it has been two years since his last tests. - The patient declined the influenza vaccine. - He takes a daily vitamin D3 supplement for a known deficiency Medications - Amitriptyline: Previously taken for migraines, now discontinued as symptoms have resolved. - Vitamin D3 supplement: Taken daily for deficiency. - Iron supplement: Started in the last couple of months. - Finasteride: Taken for hair loss. - Minoxidil: Used for hair loss. - Nizoral (Ketoconazole) shampoo: Previously used for dandruff, which has resolved. Employment - The patient works second shift in security. [facility] Surgical History No pertinent past surgical history Family History Father No problems noted. Mother No problems noted. Brother No problems noted. Sister No problems noted. Sister No problems noted. Social History Housing: House Patient Tobacco Use Status: Never used Tobacco e-Cigarette/Vaping Use: Never Used service: No Current occupational status: employed Current occupation: security Cognitive needs: No Hearing needs: No Vision needs: Yes Questionnaire Thrive Questionnaire Date Thrive assessed: 09/11/24 I am a: Patient What is your living situation today?: I have a steady place to live Within the past 12 months, did the food you bought not last and you didn't have the money to get more?: Never true Within the past 12 months, did you worry whether your food would run out before you got money to buy more?: Never true Do you have trouble paying for medicines?: No Do you have trouble getting transportation to medical appointments?: No Do you have trouble paying your heating and electricity bill?: No Do you have trouble taking care of your child, family member or friend?: No Do you have trouble with day-to-day activities such as bathing, preparing meals, shopping, managing finances, etc.?: No Are you currently unemployed and looking for a job?: No Are you interested in more education?: No Please select the resources that you would like help with: None Currently or been in a relationship where the following occur: No concerns reported THRIVE Score: 0 MOI-7 AMB Questionnaire MOI-7 Date MOI - 7 assessed: 06/02/25 Source: Developed by Drs. Carlo Romero, Rose Reese, Jose Sharma and colleagues, with an educational patsy from [employer]. Review of Systems Narrative Review of Systems - General: No fever no chills - Neurological: No headaches no dizziness - Ear nose throat: No sore throat no hearing difficulty no ear pain - Cardiovascular: No syncope, no chest pain, no palpitations - Gastrointestinal: No nausea vomiting or diarrhea - Endocrine: No polyuria polydipsia no heat intolerance - Genitourinary: No dysuria - Skin: No new complaints Physical exam (Primary Care) Vital Signs: Last Vital Signs Pulse 85 08/17/25 15:38 BP 120/74 08/17/25 15:38 Pulse Ox 98 08/17/25 15:38 BMI result Body Mass Index 30.5 Tobacco/Smoking Status: Tobacco use Status Tobacco use date assessed 06/02/25 08/17/25 15:38 Patient Tobacco Use Status Never used Tobacco 08/17/25 15:38 e-Cigarette/Vaping Use Never Used 08/17/25 15:38 Thrive Assessment: Date of Thrive Assessment Date Thrive assessed 09/11/24 08/17/25 15:38 Currently or been in a relationship where the following occur: No concerns reported Narrative Diagnostic results - Urinalysis: Recent test was normal. - Labs (last year): Showed low vitamin D. Physical Exam General: Cooperative, healthy appearing, comfortable, no acute distress Orientation: Patient oriented x3 Head: Normal to inspection Ears: Within normal limit visually Nose: Normal external nose present Face and sinus: Normal facial exam Eyes: Appearance normal, extraocular movement intact pupils reactive Neck: Normal visual inspection and supple Respiratory: Normal respiratory effort and able to speak in complete sentences. Clear to auscultation, no stridor Cardiovascular: S1 and S2 RRR GI: Normal to inspection. Soft to palpation and nontender Skin: Turgor normal, no acute findings, no rash or itching on scalp Neuro: Patient oriented x3, motor sensory intact, balance intact, tandem pass, heel to toe walking intact Extremities: Normal to inspection . Coding Level of Care Code Est Pt Level 3 (04967) Est Pt Prev Care 18-39y(16566) Diagnoses Encounter for general adult medical examination with abnormal findings Z00.01 Hair loss disorder L65.9 Frequent headaches R51.9 Vitamin D deficiency E55.9 Assessment & Plan Assessment & Plan (1) Encounter for general adult medical examination with abnormal findings: Code(s): Z00.01 - Encounter for general adult medical examination with abnormal findings Category: Medical (2) Hair loss disorder: Code(s): L65.9 - Nonscarring hair loss, unspecified Category: Medical (3) Frequent headaches: Code(s): R51.9 - Headache, unspecified Category: Medical (4) Vitamin D deficiency: Code(s): E55.9 - Vitamin D deficiency, unspecified Category: Medical Plan Patient Instructions - Follow up for fasting lab work. - Continue taking your vitamin D3 supplement every day. - You will be referred to a wheel polisher at [facility] for your hair loss. - You can view your lab results and send messages through the online patient portal. - Follow up in one year for your annual exam, or sooner if any problems arise. Orders: Orders Comprehensive Becker. Panel Fast Today D70.9 - Neutropenia, unspecified, E55.9 - Vitamin D deficiency, unspecified, L65.9 - Nonscarring hair loss, unspecified, R51.9 - Headache, unspecified, Z00.01 - Encounter for general adult medical examination with abnormal findings Lipid Panel Today D70.9 - Neutropenia, unspecified, E55.9 - Vitamin D deficiency, unspecified, L65.9 - Nonscarring hair loss, unspecified, R51.9 - Headache, unspecified, Z00.01 - Encounter for general adult medical examination with abnormal findings Vitamin D 25-OH (D2 and D3) Today D70.9 - Neutropenia, unspecified, E55.9 - Vitamin D deficiency, unspecified, L65.9 - Nonscarring hair loss, unspecified, R51.9 - Headache, unspecified, Z00.01 - Encounter for general adult medical examination with abnormal findings TSH reflex Free T4 Today D70.9 - Neutropenia, unspecified, E55.9 - Vitamin D deficiency, unspecified, L65.9 - Nonscarring hair loss, unspecified, R51.9 - Headache, unspecified, Z00.01 - Encounter for general adult medical examination with abnormal findings Complete Blood Count Auto Diff Today D70.9 - Neutropenia, unspecified, E55.9 - Vitamin D deficiency, unspecified, L65.9 - Nonscarring hair loss, unspecified, R51.9 - Headache, unspecified, Z00.01 - Encounter for general adult medical examination with abnormal findings Ferritin Today D70.9 - Neutropenia, unspecified, E55.9 - Vitamin D deficiency, unspecified, L65.9 - Nonscarring hair loss, unspecified, R51.9 - Headache, unspecified, Z00.01 - Encounter for general adult medical examination with abnormal findings Referrals Dermatology Referral L65.9 - Nonscarring hair loss, unspecified
--- OUTSIDE RECORDS SUMMARY | 2025-08-17 19:42 | XMS_ITS | Clinical Summary ---
Author Organization [facility] Address [id number] [place] [phone] Care Team Providers Care Commodity Buyer Name Role Phone Unavailable Primary Care Provider Unavailabl e Family History Medical History Relation Name Comments Diabetes Maternal Grandmother Diabetes Mother gest. Relation Name Status Comments Father Alive Maternal Grandmother Mother Alive 01/22/79 ESTEVAN CORBNI Social History Tobacco Use Types Packs/Day Years Used Date Smoking Tobacco: Never Alcohol Use Standard Drinks/Week Comments No 0 (1 standard drink = 0.6 oz pur e alcohol) Sex and Gender Information Value Date Recorded Sex Assigned at Not on file Legal Sex Male 10:04 AM EST Gender Identity Not on file Sexual Orientation Not on file Plan of Treatment Health Maintenance Due Date Last Done Comments DTaP,Tdap,and Td Vaccines (6 - Tdap) 2010 05/08/2006, 01/05/2004, 09/27/2000, Additional history exists HPV Vaccines (1 - Male 3-dose series) 2014 HIV Screening 07/31/2022 Hepatitis C Screening 07/31/2022 Social Influencers of Health Screening 07/31/2022 Depression Screening 09/02/2024 COVID-19 Vaccine ( - 2024- season) 2025 Influenza Vaccine (#1) 2025 RSV [...]
== END 2025-08-17 16:02 | disposition home or self-care (01) ==
LOC: HO.HMCC 15:33
PROVIDERS: PCP Internal Medicine; Visit Provider Internal Medicine
DX: Z00.01 Encounter for general adult medical examination with abnormal findings (principal); L65.9 Nonscarring hair loss, unspecified; R51.9 Headache, unspecified; E55.9 Vitamin D deficiency, unspecified

== ENCOUNTER → 2025-08-17 15:32 | Outpatient (BNVA) | payer OTHER, SELFPAY | PROVIDERS: PCP Internal Medicine; Visit Provider Internal Medicine | DX: Z00.01 Encounter for general adult medical examination with abnormal findings (principal); L65.9 Nonscarring hair loss, unspecified; R51.9 Headache, unspecified; E55.9 Vitamin D deficiency, unspecified | CPT/HCPCS: 99395 ==

== ENCOUNTER 2025-08-18 13:06 | Outpatient (REF) | payer OTHER, SELFPAY ==
[2025-08-18 16:18] LABS: MANUAL DIFF FLAG NO
[2025-08-18 16:28] LABS: Hematocrit 44.9 % (42.0-52.0); Hemoglobin 14.4 g/dl (14.0-18.0); Imm Gran Abs Auto 0.01 X10*3/uL (0.00-0.03); Imm Gran Pct Auto 0.2 % (0.0-0.4); Lymphocytes Absolute Auto 1.8 X10*3/uL (1.2-4.9); Mean Corpuscular HGB Conc 32.1 g/dl (31.0-36.0); Mean Corpuscular Hemoglobin 29.2 pg (27.0-33.0); Mean Corpuscular Volume 91.1 fL (80.0-98.0); NRBC Abs Auto 0.000 X10*3/uL (0.0-0.012); NRBC Pct Auto 0.0 /100WBC (0.0-0.2); Platelet Count 198 X10*3/uL (160-400); Red Blood Count 4.93 X10*6/uL (4.60-5.80); White Blood Count 4.2 X10*3/uL (4.8-10.8)
[2025-08-18 16:59] LABS: Alanine Aminotransferase 39 U/L (0-40); Albumin Level 4.8 g/dL (3.5-5.0); Alkaline Phosphatase 76 U/L (39-117); Anion Gap 11 (12-20); Aspartate Amino Transferase 29 U/L (5-37); Blood Urea Nitrogen 14 mg/dL (9-16); Calcium 9.6 mg/dL (8.4-10.2); Carbon Dioxide 28 mmol/L (22-29); Chloride 108 mmol/L (96-108); Cholesterol 212 mg/dL (<200); Estimated Glomerular Filt Rate > 60; HDL Cholesterol 50 mg/dL (>40); Potassium 4.7 mmol/L (3.3-5.1); Sodium 142 mmol/L (135-145); Total Protein 7.4 g/dL (6.5-8.0); Triglycerides 83 mg/dL (<150)
[2025-08-18 17:07] LABS: Ferritin 136 ng/mL (20-250)
--- OUTSIDE RECORDS SUMMARY | 2025-08-18 17:16 | XMS_ITS | Clinical Summary ---
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
== END 2025-08-18 13:07 ==
LOC: HO.HMGCLDS 13:06
PROVIDERS: PCP Internal Medicine; Visit Provider Internal Medicine
DX: Z00.00 Encounter for general adult medical examination without abnormal findings (principal); L65.9 Nonscarring hair loss, unspecified; R51.9 Headache, unspecified; D70.9 Neutropenia, unspecified; E55.9 Vitamin D deficiency, unspecified
CPT/HCPCS: 36415; 80053; 80061; 82306; 82728; 84443; 85025